=== PATIENT | female | born 2000 ===

== ENCOUNTER → 2018-12-29 21:28 | Outpatient (REF) | payer OTHER, SELFPAY ==
[2018-12-29 22:26] LABS: Add Manual Diff / Slide Review NO; Basophils Absolute Auto 0 /uL (0-100); Basophils Percent Auto 0.9 % (0-2); Eosinophils Absolute Auto 0 /uL (0-450); Eosinophils Percent Auto 0.5 % (2-4); Hematocrit 41.9 % (36-46); Hemoglobin 14.1 g/dL (12.0-16.0); Lymphocytes Absolute Auto 1700 /uL (1100-4500); Lymphocytes Percent Auto 41.4 % (25-40); Mean Corpuscular HGB Conc 33.7 % (30-36); Mean Corpuscular Hemoglobin 30.5 PG (26-34); Mean Corpuscular Volume 90.5 fL (80-100); Monocytes Absolute Auto 300 /uL (0-900); Neutrophils Absolute Auto 2000 /uL (1500-7000); Neutrophils Percent Auto 50.2 % (50-75); Platelet Count 224 X10^3/uL (150-400); Red Blood Cell Count 4.63 X10^6/uL (4.0-5.2); Red Cell Distribution Width 12.9 % (11.6-14.8); White Blood Cell Count 4.1 X10^3/uL (4.5-11.0)
[2018-12-29 22:33] LABS: Pregnancy Test Urine Negative (Negative)
[2018-12-29 22:38] LABS: Alanine Aminotransferase 21 IU/L (9-52); Albumin 4.6 g/dL (3.5-5.0); Albumin Globulin Ratio 1.8 (1.0-2.8); Alkaline Phosphatase 66 U/L (38-126); Aspartate Aminotransferase 22 IU/L (14-36); BUN Creatinine Ratio 18.3 (6-22); Bilirubin Total 0.4 mg/dL (0.2-1.3); Blood Urea Nitrogen 11 mg/dL (7-17); Carbon Dioxide 29 mmol/L (22-32); Chloride 103 mmol/L (98-107); Estimated Glomerular Filt Rate > 60.0 mL/min (>60); Globulin 2.6 g/dL (1.7-4.1); Glucose 90 mg/dL (70-100); HEMOLYSIS < 15 (0-50); Potassium 4.7 mmol/L (3.4-5.1); Sodium 140 mmol/L (137-145); Total Protein 7.2 g/dL (6.3-8.2)
[2018-12-29 23:00] LABS: Erythrocyte Sedimentation Rate 4 MM/HR (0-20)
[2018-12-29 23:07] LABS: Thyroid Stimulating Hormone 1.41 uIU/mL (0.47-4.68)
[2019-01-01 16:06] LABS: Progesterone 0.6 ng/mL
== END ==
LOC: LAB 21:28
PROVIDERS: Visit Provider Naturopath
DX: N91.2 Amenorrhea, unspecified (principal); N64.4 Mastodynia
CPT/HCPCS: 36415; 80053; 81025; 84144; 84443; 85025; 85651